=== PATIENT | male | born 1955 | race Caucasian/White ===

== ENCOUNTER 2023-09-30 10:33 | Day surgery (SDC) | payer MEDICARE, OTHER ==
--- NOTE | 2023-09-29 13:15 | HP ---
HISTORY AND PHYSICAL HISTORY OF PRESENT ILLNESS: Patient has enlarging subcutaneous mass, right neck, increasing in size; desires removal. PAST MEDICAL HISTORY: Hypertension, glaucoma. PAST SURGICAL HISTORY: Umbilical hernia repair in the past. FAMILY HISTORY: Heart disease. SOCIAL HISTORY: Half pack week smoker. Frequently drinks alcohol. Uses marijuana occasionally. MEDICATIONS: Latanoprost eyedrops, clonidine, metoprolol, amlodipine, hydrochlorothiazide, and losartan. ALLERGIES: No known drug allergies. REVIEW OF SYSTEMS: Twelve systems reviewed. Pertinent for significant hypertension, glaucoma as noted above. PHYSICAL EXAMINATION: GENERAL: Height 5 feet 7 inches. BMI 40.72. No acute distress. Overweight gentleman. HEENT: Sclerae nonicteric. NECK: No JVD. Right lateral neck subcutaneous mass, lipoma or nodule. CHEST: Equal excursion. CARDIOVASCULAR: Regular rate and rhythm. ABDOMEN: Soft. EXTREMITIES: No cyanosis or edema. NEUROLOGIC: Alert and oriented, moving all extremities symmetrically. PSYCHIATRIC: Appropriate mood and affect. SKIN: Dry. IMPRESSION: Enlarging right neck subcutaneous mass or nodule. Recommend excision. Risks were explained in detail including but not limited to bleeding and infection possibly requiring packing; hematoma; seroma; aches; pains; burning or numbness; as well as risk of anesthesia, DVT, PE, pneumonia. Recommend continuing medications for her hypertension and glaucoma. Will proceed with outpatient excision, biopsy of right neck mass as an outpatient in the OR.
[~2023-09-30 10:33] MED LIST: Sensorcaine 0.25% 10 ML ONE
[2023-09-30] MEDS: CEFAZOLIN 2 GM/100 ML NaCl 2 GM/100 ML IVPB IV SCH (10:47)
[2023-09-30] MEDS: Lactated Ringers 1,000 ML IV SCH (10:47)
[2023-09-30 11:07] VITALS: RESP 16
[2023-09-30 11:31] LABS: ANION GAP 12.7 MEQ/L (5-15); Calcium 8.8 mg/dL (8.4-10.2); Creatinine 1 0.8 mg/dL (0.66-1.25); Potassium 3.9 mmol/L (3.5-5.1)
[2023-09-30] MEDS ORDERED: DIPRIVAN 200 MG/20 ML IV ONE (11:58)
[2023-09-30] MEDS ORDERED: Zofran 4 MG/2 ML VIAL ONE ×2 (11:58→13:45)
[2023-09-30] MEDS ORDERED: ROCURONIUM BROMIDE IV ONE (11:58)
[2023-09-30] MEDS ORDERED: Decadron 4 MG INJ ONE (11:58)
[2023-09-30] MEDS ORDERED: SUBLIMAZE 100 MCG/2 ML ONE (11:59)
[2023-09-30] MEDS ORDERED: Ephedrine Sulfate 50 MG/ML ONE (12:36)
[2023-09-30] MEDS ORDERED: DILAUDID 2 MG INJECTION ONE (12:41)
[2023-09-30] MEDS ORDERED: BRIDION 200MG/2ML IV ONE (12:53)
[2023-09-30 14:18] VITALS: O2SAT 95
[2023-09-30 14:44] VITALS: BP 154/78; PULSE 60; TEMP 97
--- NOTE | 2023-10-01 10:19 | OP ---
SURGERY DATE/TIME: 09/30/2023 3449 [id number] PREOPERATIVE DIAGNOSIS: Enlarging right neck mass. POSTOPERATIVE DIAGNOSIS: Subfascial lipomatous density (approximately 3.5 cm). PROCEDURE: Excisional biopsy right neck subfascial lipomatous density (approximately 3.5 cm in vivo). SURGEON: Waqas Garza MD NAIL CUTTER: Pedro Santa, Medical Student ANESTHESIA: General. ESTIMATED BLOOD LOSS: Minimal. INDICATIONS: Consent was obtained. DESCRIPTION OF PROCEDURE AND FINDINGS: The patient was taken to the operating room. General anesthesia was induced, prepped and draped in usual sterile fashion. Neck was prepped and draped in the usual sterile fashion and re-prepping the ear area. After official time-out, transverse incision made. Dissection carried down through the platysma. Directly down underneath the fascia there was a firmer lipomatous density than the surrounding subcutaneous and subfascial fat. This was carefully away from visible nerve, had a hard time holding its shape and fell into pieces, but it was able to be dissected off the underlying muscle away from the nerve and up to the bottom edge of the parotid. Passed off for pathology. It measured about 3.5 cm in vivo. The wound was irrigated out. Good hemostasis noted. Platysma closed with 3-0 Vicryl, subcutaneous closed with 3-0 Vicryl, skin closed with 4-0 Vicryl. Steri-Strips and sterile dressing were applied. Marcaine 0.25% local had been injected around the wound area. The patient tolerated the procedure well. There were no immediate complications. Findings discussed with the family out in the waiting area.
== END 2023-09-30 14:40 | disposition home or self-care (01) ==
LOC: SDC 10:33
PROVIDERS: ATTEND Surgery
DX: D17.0 Benign lipomatous neoplasm of skin and subcutaneous tissue of head, face and neck (principal); I10 Essential (primary) hypertension
CPT/HCPCS: 36415; 80048; 93005; J0690; J1100; J1170; J2405; J2704; J3010